=== PATIENT | female | born 1965 | race Caucasian/White ===

== ENCOUNTER 2021-07-17 09:55 | Outpatient (CLI) | payer OTHER ==
--- NOTE | 2021-07-17 10:27 | XRAY Report ---
PROCEDURE: Chest 2 View X-Ray INDICATIONS: CONGESTION IN CHEST TECHNIQUE: 2 view(s) of the chest. COMPARISON: Reference is made to the chest radiograph report dated April 23, 2010 FINDINGS: SUPPORT DEVICES: None. LUNGS/PLEURA: Coarsened interstitial markings. No focal consolidation, pleural effusion or space-occu pying pneumothorax. MEDIASTINUM: The cardiomediastinal silhouette is within normal limits. BONES/SOFT TISSUES: No acute abnormality. IMPRESSION: 1.No acute cardiopulmonary abnormality. Reviewed by: Hunter Bourgeois MD on 07/17/2021 10:25 AM PDT Approved by: Hunter Bourgeois MD on 07/17/2021 10:25 AM PDT Station ID: [id number]
== END 2021-07-17 09:56 | disposition home or self-care (01) ==
LOC: DI 09:55
PROVIDERS: ATTEND Student in an Organized Health Care Education/Training Program
DX: R09.89 Other specified symptoms and signs involving the circulatory and respiratory systems (principal)